=== PATIENT | female | born 1970 | race Caucasian/White ===

== ENCOUNTER 2020-10-24 06:05 | Emergency (ER) | payer OTHER ==
[~2020-10-24] VITALS: Ht 165.1 cm; Wt 69.4 kg
[2020-10-24] MEDS ORDERED: DEXAMETHASONE SOD PHOSPHATE 4 MG INJ IM ONE (07:00)
[2020-10-24] MEDS ORDERED: KETOROLAC TROMETHAMINE 60 MG INJ IM ONE ×2 (07:00→07:11)
[2020-10-24] MEDS ORDERED: ACETAMINOPHEN ES 500 MG TABLET PO ONE (07:00)
[2020-10-24 07:07] LABS: *URINE HCG, QUAL NEG (NEGATIVE)
[2020-10-24] MEDS ORDERED: ACETAMINOPHEN ES 500 MG TABLET ONE (07:09)
[2020-10-24] MEDS ORDERED: DEXAMETHASONE SOD PHOSPHATE 4 MG INJ ONE (07:09)
[2020-10-24] MEDS ORDERED: IBUP-1957 PO (07:20)
[2020-10-24] MEDS ORDERED: HYDR-4209 PO (07:20)
--- NOTE | 2020-10-24 07:25 | NUR ---
Patient discharged to home in stable condition. Able to ambulate with steady gait. Took all belongings. Written and verbal after care instructions given. Patient verbalizes understanding of instructions. Stressed follow up or return to ER for worsening s/s.
== END 2020-10-24 07:30 | disposition home or self-care (01) ==
LOC: ER 06:19
DX: M54.42 Lumbago with sciatica, left side (principal); E78.5 Hyperlipidemia, unspecified; E03.9 Hypothyroidism, unspecified
CPT/HCPCS: 76775; 84703; 96372 ×2; 99284; J1100; J1885; A4663; A9150